=== PATIENT | female | born 2005 | race African-American/Black ===

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

== ENCOUNTER 2024-10-09 15:55 | Emergency (ER) | payer OTHER, BC, SELFPAY ==
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
[2024-10-09 16:02] VITALS: BP 143/80; PULSE 100; RESP 16; TEMP 37; O2SAT 99
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
[2024-10-09 16:24] LABS: BEDSIDEPREGUCG Negative (Negative)
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
--- OUTSIDE RECORDS SUMMARY | 2024-10-10 14:55 | XMS_ITS | Encounter Summary ---
Author Organization [facility] Address [address] [place] [address] Phone Care Team Providers Care Running Rigger Name Role Phone Haylee Rosado MD Primary Care Provider Encounter Details Date Type Department Care Team (Late st Contact Info) Description 10/09/2023 Telephone [facility] Cardiology [address] [facility] Advanced Medicine [address]th [place] [address] [place] [address] Greg Jolley MD [address] [facility] [address] [place], [place] [id number] Social History Tobacco Use Types Packs/Day Years Used Date Smoking Tobacco: Never Passive Smoke Exposure: Never Smokeless Tobacco: Never Personal Safety Answer Date Recorded Getting School Help Needed Not on file 08/04 Comments Unknown Sex and Gender Information Value Date Recorded Sex Assigned at Not on file 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
--- OUTSIDE RECORDS SUMMARY | 2024-10-10 14:55 | XMS_ITS | Referral Summary ---
Author Organization [facility] Address [address] [place] [address] Care Team Providers Care Assorter Laundry Name Role Phone Haylee Rosado MD Primary Care Provider Encounters Date Type Department Care Team Description 07/16/2024 8:30 AM INDUSTRIAL METHODS CONSULTANT Office Visit [facility] Pediatric Neurology [address] [place] [address] Jina Ivey, MEDARDO Migraine without aura and without status migrainosus, not intractable (Primary Dx); Episodic tension-type headache, not intractable from Last 3 Months Allergies Active Allergy Reactions Criticality Noted Date Comments Polymyxin B Sulf-Trimethoprim Other (See comments) Low 02/22/2022 Reaction burning of the eye Medications triamcinolone-dim ethicone 0.1-5 % kit,ointment and cream Active albuterol HFA (PROVENTIL HFA,VENTOLIN HFA,PROAIR HFA) 90 mcg/actuation inhaler Inhale 2 puffs every 6 (six) hours as needed 08/21/19 12 Active medroxyPROGESTERo ne 150 mg/mL injection 150 MG INTRAMUSCULARLY EVERY 3 MONTHS 10/30/19 23 Active montelukast (SINGULAIR) 5 mg chewable tablet Take 2 tablets (10 mg total) by mouth daily 09/19/19 24 Active ubrogepant (UBRELVY) 100 mg tablet Take 1 tablet (100 mg total) by mouth once as needed for migraine May repeat dose once in 2 hours if no relief. Do not exceed 2 doses in 24 hours. 10 tablet 6 07/16/19 25 026 Active rizatriptan CONTROL ROOM SUPERVISOR (MAXALT-CONTROL ROOM SUPERVISOR) 10 mg disintegrating tablet PLEASE SEE ATTACHED FOR DETAILED DIRECTIONS 9 tablet 3 09/01/19 25 Active Hospital, Clinic, or Other Facility Administered Medication Ordered Dose Route Frequency Start Date End Date Status perflutren protein-a (OPTISON) 3 mL in sodium chloride 0.9% 8 mL syringe 1 - 8 mL IV Once in imaging 09/17/2023 Active Active Problems Problem Noted Date Diagnosed Date Shoulder dislocation, left, initial encounter Migraine without aura and wi thout status migrainosus, not intractable 02/22/2022 Episodic tension-type headache, not intractable 02/22/2022 Piriformis syndrome of left side 09/16/2020 Overview (07/16/2024): Marilynn is a 15 y/o female with history of left piriformis syndrome that has dramatically improved with physical therapy. Mild persistent asthma without complication 10/09 Allergic rhinitis due to pollen 11/04/2015 Eczema 11/04/2015 Chest pain 09/13/2015 Allergic conjunctivitis 02/13/2011 Allergic rhinitis 02/13/2011 Overview (07/16/2024): Skin testing on 02/13/11 positive to dust mite, mold, trees, and grass. Asthma 02/13/2011 Overview (07/16/2024): Mild persistent Social History Tobacco Use Types Packs/Day Years Used Date Smoking Tobacco: Never Passive Smoke Exposure: Never Smokeless Tobacco: Never Tobacco Cessation:Counseling Given: Not Answered Personal Safety Answer Date Recorded Have you ever been in or are you currently in a harmful physical or emotional relationship or is someone making you feel afraid or unsafe? 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 Gender Identity Not on file Sexual Orientation Not on file Last Filed Vital Signs Vital Sign Reading Time Taken Comments Blood Pressure 134/81 07/16/2024 8:26 AM INDUSTRIAL METHODS CONSULTANT Pulse 94 07/16/2024 8:26 AM INDUSTRIAL METHODS CONSULTANT Temperature 37 C (98.6 F) 07/16/2024 8:26 AM INDUSTRIAL METHODS CONSULTANT Respiratory Rate 18 01/03/2023 9:16 AM CDT Oxygen Saturation 99% 07/16/2024 8:26 AM INDUSTRIAL METHODS CONSULTANT Inhaled Oxygen Concentration - - Weight 77.9 kg (171 lb 11.8 oz) 07/16/2024 8:26 AM INDUSTRIAL METHODS CONSULTANT Height 162.6 cm (5' 4 ) 07/16/2024 8:26 AM INDUSTRIAL METHODS CONSULTANT Body Mass Index 29.48 07/16/2024 8:26 AM INDUSTRIAL METHODS CONSULTANT Plan of Treatment Not on file Insurance Serious BusinessEM ACCESS Serious BusinessEM ACCESS ANTHEM ACCESS [address] [place] [id number] Care Teams Assorter Laundry Relationship Specialty Start Date End Date Haylee Rosado MD [address] [place] [address] PCP - General Pediatrics 11/24/21
--- OUTSIDE RECORDS SUMMARY | 2024-10-10 14:55 | XMS_ITS | Clinical Summary ---
Author Organization [facility] Address [address] [place] [address] Care Team Providers Care Electrician Maintenance Name Role Phone Haylee Rosado MD Primary Care Provider Allergies Active Allergy Reactions Criticality Noted Date [...] tablet 6 07/16/19 25 026 Active rizatriptan EARLY CHILDHOOD EDUCATION SPECIALIST (MAXALT-EARLY CHILDHOOD EDUCATION SPECIALIST) 10 mg disintegrating tablet PLEASE SEE ATTACHED [...] grass. Asthma 02/13/2011 Overview (07/16/2024): Mild persistent Encounters Date Type Department Care Team Description 07/16/2024 8:30 AM BOTTOM LINER Office Visit [facility] Pediatric Neurology [address] [place] [address] Jina Ivey, MEDARDO Migraine without aura and without status migrainosus, not intractable (Primary Dx); Episodic tension-type headache, not intractable from Last 3 Months Surgical History Surgery Date Site/Laterality Comments ELBOW SURGERY 2010 TYMPANOSTOMY TUBE PLACEMENT 2007 SHOULDER ARTHROSCOPY 04/09/2024 Left WISDOM TOOTH EXTRACTION 01/09/2024 - 02/08/2024 all 4 Medical History Medical History Date Comments Migraine History of hip disorder Anxiety Family History Medical History Relation Name Comments No Known Problems Brother Migraines Father Migraines Mother No Known Problems Sister Relation Name Status Comments Brother Father Mother Sister Social History Tobacco Use Types Packs/Day Years [...] on file Legal Sex Female 1:15 AM BOTTOM LINER Gender Identity Not on file Sexual Orientation Not on file Obstetrics History Last Filed Vital Signs Vital Sign Reading Time Taken Comments Blood Pressure 134/81 07/16/2024 8:26 AM BOTTOM LINER Pulse 94 07/16/2024 8:26 AM BOTTOM LINER Temperature 37 C (98.6 F) 07/16/2024 8:26 AM BOTTOM LINER Respiratory Rate 18 01/03/2023 9:16 AM CDT Oxygen Saturation 99% 07/16/2024 8:26 AM BOTTOM LINER Inhaled Oxygen Concentration - - Weight 77.9 kg (171 lb 11.8 oz) 07/16/2024 8:26 AM BOTTOM LINER Height 162.6 cm (5' 4 ) 07/16/2024 8:26 AM BOTTOM LINER Body Mass Index 29.48 07/16/2024 8:26 AM BOTTOM LINER Plan of Treatment Health Maintenance Due Date Last Done Comments Depression Screening 2004 Hepatitis C Screening 2004 Pneumococcal vaccine <65 (1 of 1 - PPSV23) 2010 10/08/2007, 01/16/2006, 04/16/2005, Additional history exists Regular Well Visit/Exam 18-64 2022 Meningococcal B Vaccine (2 o f 2 - Bexsero SCDM 2-dose series) 08/15/2023 02/14/2023 Covid-19 Vaccine (5 - 2023-2 5 season) 2024 04/10/2022, 06/23/2021, 11/30/2020, Additional history exists DTaP/Tdap/Td Vaccine (7 - Td or Tdap) 10/18/2024 10/18/2014, 10/07/2009, 10/08/2007, Additional history exists Hepatitis B Screening Completed 04/16/2005 , 02/13/2005, 2004, Additional history exists Varicella Vaccines Completed 10/07/2009, 0 10/27/2008, 10/08/2008, Additional history exists HPV Vaccines Completed 11/27/2018, 11/26/2017 Meningococcal Vaccine Completed 12/07/2020, 016 Influenza Vaccine Completed 02/17/2024, , 03/10/2021, Additional history exists Insurance [employer] ACCESS [employer] ACCESS ANTHEM ACCESS [address] [place] [id number] Care Teams Electrician Maintenance Relationship Specialty Start Date End Date Haylee Rosado MD [address] [place] [address] PCP - General Pediatrics 11/24/21
--- OUTSIDE RECORDS SUMMARY | 2024-10-10 14:55 | XMS_ITS | Clinical Summary ---
Author Organization [facility] Address [address] [address] Care Team Providers Care Military Source Operations Specialist Name Role Phone Diana Canada MD Unavailable Haylee Rosado MD Primary Care Provider [phone] Source Comments [facility],non-owned Affiliates and Associated Physician Practices is amultiple site organization consisting of ambulatory clinics and hospital sitesin [place], [place], [place] and [place]. This disclosure is being madepursuant to the Care Everywhere program and may not contain all information available regarding this patient. Last updated 18.[facility] Allergies Active Allergy Reactions Criticality Noted Date Comments Polymyxin B-Trimethoprim Other Low 02/22/2022 Reaction burning of the eye Medications * Be aware that medications may not be up to date on this document. Alwaysverify current medications with the patient. AeroChamber Plus (AEROCHAMBER) Use as directed. 1 Device 1 02/14/20 11 Active albuterol HFA (PROVENTIL;JOSÉ MIGUEL TOLIN;PROAIR) 108 (90 BASE) MCG/ACT inhalerIndicat ions:Asthma Inhale 2 Puffs by mouth every 6 hours as needed (per the action plan). 2 Inhaler 6 08/21/19 12 Active fluticasone propionate (FLONASE) 50 MCG/ACT nasal spray Sweet [place] 1 [place] into each nostril once daily. 1 Bottle 6 08/21/19 12 Active olopatadine (PATANOL) 0.1 % ophthalmic solution 1 (one) drop 2 times daily Active triamcinolone acetonide (KENALOG) 0.1 % ointment APPLY OINTMENT TOPICALLY TWICE A DAY 08/04/19 21 Active medroxyPROGEST ERone (Depo-Provera) 150 MG/ML prefilled syringe INJECT 150 MG INTRAMUSCULARLY EVERY 3 MONTHS Active propranolol (Inderal) 20 MG/5ML oral solution TAKE 7.5 ML (30 MG TOTAL) BY MOUTH 2 (TWO) TIMES A DAY 03/04/20 24 Active ubrogepant (Ubrelvy) 100 MG tablet Take 1 (one) tablet by mouth 11/14/19 24 025 Active montelukast (Singulair) 5 MG chew tablet Take 2 (two) tablets by mouth once daily 09/19/19 24 Active albuterol (Proventil;José Miguel tolin) (2.5 MG/3ML) 0.083% nebulizer solution Inhale 2.5 (two and one-half) mg by mouth every 6 hours as needed Active methylPREDNISo lone (Medrol Dosepak) 4 MG tablet Take by mouth as directed Take as directed by mouth per package instructions. 21 tablet 04/09/20 24 Active meloxicam (Mobic) 15 MG tablet Take 1 (one) tablet by mouth once daily 30 tablet 04/09/20 24 Active docusate sodium (Colace) 100 MG capsule Take 1 (one) capsule by mouth once daily 14 capsule 04/09/20 24 Active gabapentin (Neurontin) 300 MG capsule Take 1 (one) capsule by mouth 3 times daily 21 capsule 04/09/20 24 Active oxyCODONE-acet aminophen (Percocet) 5-325 MG tabletIndicati ons:Postoperat ruddy pain of extremity Take 1 (one) tablet to 2 (two) tablets by mouth every 6 hours as needed for Pain 20 tablet 04/14/20 24 Active acetaminophen (Tylenol) 160 MG/5ML solution Take by mouth every 4 hours as needed for Fever or Pain Active Active Problems Problem Noted Date Diagnosed Date Shoulder dislocation, left, initial encounter Episodic tension-type headache, not intractable 02/22/2022 Migraine without aura and wi thout status migrainosus, not intractable 02/22/2022 Piriformis syndrome of left side 09/16/2020 Overview (01/02/2021): Marilynn is a 15 y/o female with history of left piriformis syndrome that has dramatically improved with physical therapy. Assessment & Plan (01/02/2021 10:38 PM CDT): PLAN: 1. Questions solicited and answered. 2. Medications Prescribed: none 3. Activity Restrictions: none 4. Weightbearing status: No Restrictions 5. Follow up: as needed Assessment & Plan (09/16/2020 12:53 PM CDT): PLAN: 1. Questions solicited and answered. 2. I discussed the following treatment options: Physical Therapy discussed and ordered 3. Exercise options discussed and encouraged. 4. Medications Prescribed: OTC analgesics 5. Activity Restrictions: none 6. Weightbearing status: No Restrictions 7. Follow up: in 3 month(s) without X-rays Allergic rhinitis due to pollen 11/04/2015 Mild persistent asthma without complication 10/09 Chest pain 09/13/2015 Asthma 02/13/2011 Overview (02/13/2011): Mild persistent Allergic rhinitis 02/13/2011 Overview (02/13/2011): Skin testing on 02/13/11 positive to dust mite, mold, trees, and grass. Allergic conjunctivitis 02/13/2011 Eczema 02/13/2011 Encounters Date Type Department Care Team Description 09/04/2024 1:19 PM CDT - 09/04/2024 3:16 PM CDT Hospital Encounter [facility] Pediatrics - Orthopedics [facility] [place] [address] Cristobal Graham MD Discharge Disposition: Home or Self Care 09/04/2024 Travel from Last 3 Months Immunizations Immunization Administration Dates Next Due DTAP/HEP B/IPV 04/16/2005,02/13/2005,2004 HEP B VACCINE, PED/ADOL 2004 HIB BOOSTER 04/16/2005,02/13/2005,2004 PNEUMOCOCCAL CONJ, PEDS 04/16/2005,02/13/2005, Family History Medical History Relation Name Comments Hypertension Maternal Grandmother Kidney Disease Maternal Grandmother Obesity Maternal Grandmother Relation Name Status Comments Maternal Grandmother Social History Tobacco Use Types Packs/Day Years Used Date Smoking Tobacco: Never Smokeless Tobacco: Never Tobacco Cessation:Counseling Given: Not Answered Alcohol Use Standard Drinks/Week Comments No 0 (1 standard drink = 0.6 oz pur e alcohol) PHQ-2 Answer Date Recorded Patient Health Questionnaire-2 Score 0 03/23/2024 Comments No Sex and Gender Information Value Date Recorded Sex Assigned at Not on file Legal Sex Female 5:44 AM CLEAN ROOM ASSEMBLER Gender Identity Not on file Sexual Orientation Not on file Last Filed Vital Signs Vital Sign Reading Time Taken Comments Blood Pressure 114/47 04/09/2024 2:35 PM CDT Pulse 116 04/09/2024 2:35 PM CDT Temperature 36.1 C (97 F) 04/09/2024 2:25 PM CDT Respiratory Rate 21 04/09/2024 2:35 PM CDT Oxygen Saturation 98% 04/09/2024 2:35 PM CDT Inhaled Oxygen Concentration - - Weight 75.3 kg (166 lb) 04/09/2024 11:04 AM CDT Height 160 cm (5' 3 ) 04/09/2024 11:04 AM CDT Body Mass Index 29.41 04/09/2024 11:04 AM CDT Plan of Treatment Upcoming Encounters Date Type Department Care Team (Late st Contact Info) Description 11/06/2024 1:00 PM CDT Appointment [facility] Pediatrics - Orthopedics [address] [place] [address] Cristobal Graham MD [address] [facility] [place] [address] Health Maintenance Due Date Last Done Comments PNEUMOCOCCAL VACCINE (1 of 1 - PPSV23) 2010 04/16/2005, 02/13/2005, 2004 HIV SCREENING 10/07/2019 HPV VACCINE (1 - 3-dose series) 10/07/2019 CHLAMYDIA/GONORRHEA SCREENING 2020 MENINGOCOCCAL (Group B) VACCINE SHARED DECISION-MAKING (1 of 2 - Standard) 2020 HEPATITIS C SCREENING 10/02/2022 DTAP/TDAP/TD VACCINES (4 - Tdap) 10/07/2023 04/16/2005, 02/13/2005, 2004 COVID-19 VACCINE ( - season) 2024 DEPRESSION SCREENING 06/10/2024 ZOSTER VACCINE (1 of 2) 2054 HEPATITIS B VACCINE Completed 04/16/2005, 02/13/2005, 2004, Additional history exists HIB VACCINE Aged Out 04/16/2005, 11/2004, 2004 No longer eligible based on patient's age to complete this topic INFLUENZA VACCINE Completed 02/17/2024 MENINGOCOCCAL GROUPS A/C/Y/W VACCINE Aged Out No longer eligible based on patient's age to complete this topic Medical Devices Implanted Type Area Television Analyzer Device Identifier Shelf Expiration Date Model / Serial / Lot [place] Sut Gryphon Proknot Bcrl Rapide - Sn/A Implanted:Qty: 2 on 04/09/2024 by Cristobal Graham MD at [facility] Left: Shoulder [employer] 06/09/2026 [id number] / N/A / [id number] Insurance [facility] ANTHEM ANTHEM Care Teams Military Source Operations Specialist Relationship Specialty Start Date End Date Diana Canada MD PCP - Pediatrics 02/28/09 Haylee Rosado MD [address] [address] [place] [address] PCP - General 03/16/10
--- OUTSIDE RECORDS SUMMARY | 2024-10-10 14:55 | XMS_ITS | Clinical Summary ---
Author Organization [facility] Address [address] [place] [address] Care Team Providers Care Stationary Boiler Fireman Name Role Phone None, Provider MD Primary Care Provider Unavaila ble Allergies Active Allergy Reactions Criticality Noted Date Comments Polymyxin B-Trimethoprim Other (see comment) Low 02/22/2022 Reaction burning of the eye Medications ubrogepant (UBRELVY) 100 MG tablet Take 1 tablet (100 mg total) by mouth. 11/14/19 24 025 Active medroxyPROGEST ERone (DEPO-PROVERA) injection INJECT 150 MG INTRAMUSCULARLY EVERY 3 MONTHS 12/23/19 24 Active propranolol (INDERAL) 20 MG/5ML solution TAKE 7.5 ML (30 MG TOTAL) BY MOUTH 2 (TWO) TIMES A DAY Active albuterol sulfate HFA 108 (90 Base) MCG/ACT inhaler USE 2 TO 4 PUFFS BY MOUTH EVERY 4 TO 6 HOURS NEEDED PRETREAT WITH EXERCISE 02/17/20 24 Active Family History Medical History Relation Comments Cancer Maternal Grandfather Cancer Maternal Grandmother Diabetes Mother Stroke Mother Cancer Paternal Aunt Hypertension Paternal Grandfather Hypertension Paternal Grandmother Relation Status Comments Father Maternal Grandfather Maternal Grandmother Mother Paternal Aunt Paternal Grandfather Paternal Grandmother Social History Tobacco Use Types Packs/Day Years Used Date Smoking Tobacco: Never Smokeless Tobacco: Never Tobacco Cessation:Counseling Given: No Comments:na Alcohol Use Standard Drinks/Week Comments Never 0 (1 standard drink = 0.6 oz pur e alcohol) PHQ-2 Answer Date Recorded Patient Health Questionnaire-2 Score 0 02/19/2024 Comments No Sex and Gender Information Value Date Recorded Sex Assigned at Female 02/19/2024 7:59 AM CDT Legal Sex Female 3:56 PM CDT Gender Identity Female 02/19/2024 7:59 AM CDT Sexual Orientation Not on file Last Filed Vital Signs Vital Sign Reading Time Taken Comments Blood Pressure 108/72 03/19/2024 7:43 AM CDT Pulse 89 03/19/2024 7:43 AM CDT Temperature - - Respiratory Rate - - Oxygen Saturation - - Inhaled Oxygen Concentration - - Weight 76.2 kg (168 lb) 03/19/2024 7:43 AM CDT Height 162.6 cm (5' 4 ) 03/19/2024 7:43 AM CDT Body Mass Index 28.84 03/19/2024 7:43 AM CDT Plan of Treatment Health Maintenance Due Date Last Done Comments Annual Physical 10/07/2007 Chlamydia Screening Females ages 16-24 2020 Hepatitis C 2022 COVID-19 Vaccine ( season) 2024 04/10/2022, 06/23/2021, 11/30/2020, Additional history exists PHQ-2 (Physician [place]) 06/10/2024 02/19/2024 DTaP, Tdap and Td Vaccines (7 - Td or Tdap) 10/18/2024 10/18/2014, 10/07/2009, 10/08/2007, Additional history exists Hepatitis B Vaccines Completed 04/16/2005, 02/13/2005, 2004, Additional history exists Pneumococcal Vaccine: Pediatrics (0 to 5 Years) and At-Risk Patients (6 to 49 Years) Aged Out 10/08/2007, 01/16/2006, 04/16/2005, Additional history exists No longer eligible based on patient's age to complete this topic HPV Vaccines Completed 11/27/2018, 11/26/2017 Meningococcal Vaccine Completed 12/07/2020, 016 Meningococcal B Vaccine Completed 02/17/2024, 02/14 RSV Immunizations Under 20 Months Aged Out No longer eligible based on patient's age to complete this topic Insurance [facility] GENERIC - COMMERCIAL Care Teams Stationary Boiler Fireman Relationship Specialty Start Date End Date None, Provider, PCP - General UNKNOWN PHYSICIAN SPECIALTY 02/18/24
--- OUTSIDE RECORDS SUMMARY | 2024-10-10 14:55 | XMS_ITS | Continuity of Care Document ---
Author Organization [facility] Address [address] [place] [address] Phone Care Team Providers Care Corporate Intern Name Role Phone Claudy PT,MPT,ATC, Roly Unavailable Unavai lable Procedures Procedure Date Therapeutic Activities Therapeutic Exercise Neuromuscular Re-Ed Neuromuscular Re-Ed Therapeutic Activities Therapeutic Exercise Neuromuscular Re-Ed Therapeutic Activities Therapeutic Exercise Therapeutic Activities Therapeutic Exercise Neuromuscular Re-Ed PT Evaluation Moderate Complexity Neuromuscular Re-Ed Therapeutic Activities Therapeutic Exercise Advance Directives Directive Yes / No Effective Date File Name No Information Encounters Encounter Description Practice Location Reason(s) For Visit Diagnoses Date Provider Providers Copied on Encounter [facility], [place], [place], [id number], tel:[phone] [place] No Information 1 STEPHANE Mal[place]ado, [place]. [facility], [address], [place], [place], [id number], tel:[phone] [facility] No Information 1 STEPHANE Maldonado, [place]. Referring Provider: Hola Dominique [address] [place] [address] [place], [address]. tel:[phone] [facility] [address], [id number], tel:[phone] [place] No Information 1 Claudy [place]ck[place], [place]. Referring Provider: Hola Dominique [address] [place] [address] [place], [address]. tel:[phone] [facility] [address], [id number], [place] tel:[phone] [place] No Information 1 Claudy Mckinney , [place], [place]. Referring Provider: Hola Dominique [address] [place] [address] [place], [address]. tel:[phone] [facility] [address], [id number], [place] tel:[phone] [place] No Information 1 Claudy [place]. Referring Provider: Hola Dominique [address] [place] [address] [place], [address]. tel:[phone] [facility] [address] [place] [address], [id number], [place] tel:[phone] [place] No Information 1 Claudy [place]. Referring Provider: Hola Dominique [address] [place] [address] [place], [address]. tel:[phone] Family History Family Member Type Diagnosis Age At Onset No Information Payers Payer name Insurance type Covered democrat ID Humble donald(s) [facility] [id number] Social History Type Description Quantity Date Captured Comments Sex Female Smoking Status No Information Chief Complaint And Reason For Visit No Information Reason For Referral Reason For Referral No Information History Of Present Illness Encounter Date Complaint History Of Prese nt Illness No Information Functional Status Date Functional Assessmen t No Information Instructions Date Instruction Additional Infor mation No Information Assessments Type Assessment Date No Information Patient Care Teams Name Effective Dates (start - stop) Status Members No Information
--- OUTSIDE RECORDS SUMMARY | 2024-10-10 14:59 | XMS_ITS | Continuity of Care Document ---
Author Organization [facility] Address [address] [place] [address] Phone Care Team Providers Care Supervisor Laundry Name Role Phone Claudy PT,MPT,ATC, Roly Unavailable Unavai lable Procedures Procedure Date Therapeutic Activities Therapeutic Exercise Neuromuscular Re-Ed Neuromuscular Re-Ed Therapeutic Activities Therapeutic Exercise Therapeutic Exercise Therapeutic Activities Neuromuscular Re-Ed Neuromuscular Re-Ed Therapeutic Activities Therapeutic Exercise PT Evaluation Moderate Complexity Therapeutic Exercise Therapeutic Activities Neuromuscular Re-Ed Advance Directives Directive Yes / No Effective Date File Name No Information Encounters Encounter Description Practice Location Reason(s) For Visit Diagnoses Date Provider Providers Copied on Encounter [email or web address], [place], [place], [id number], tel:[phone] [place] No Information 1 STEPHANE Maldonado, [place]. [facility], [address], [place], [place], [id number], tel:[phone] [facility] No Information 1 STEPHANE Maldonado, [place]. Referring Provider: Hola Dominique [address] [place] [address] [place], [address]. tel:[phone] [facility] [address], [id number], tel:[phone] [place] No Information 1 Claudy [place]ck[place], [place]. Referring Provider: Hola Dominique [address] [place] [address] [place], [address]. tel:[phone] [facility] [address], [id number], [place] tel:[phone] [place] No Information 1 Claudy Mckinney , [place], [place]. Referring Provider: Hola Dominique [address] [place] [address] [place], [address]. tel:[phone] [facility] [address], [id number], [place] tel:[phone] [place] No Information 1 Claudy [place], [place]. Referring Provider: Hola Dominique [address] [place] [address] [place], [address]. tel:[phone] [facility] [address] [place] [address], [id number], [place] tel:[phone] [place] No Information 1 Claudy [place], [place]. Referring Provider: Hola Dominique [address] [place] [address] [place], [address]. tel:[phone] Family History Family Member Type Diagnosis Age At Onset No Information Payers Payer name Insurance type Covered alliance party ID Humble donald(s) [facility] [id number] Social History Type Description Quantity Date Captured [...]
== END 2024-10-09 17:14 | disposition home or self-care (01) ==
LOC: ANHED 17:08
PROVIDERS: Registered Nurse; Emergency Provider Emergency Medicine; PCP Pediatrics
DX: S13.4XXA Sprain of ligaments of cervical spine, initial encounter (principal); S39.012A Strain of muscle, fascia and tendon of lower back, initial encounter; S29.012A Strain of muscle and tendon of back wall of thorax, initial encounter; J45.909 Unspecified asthma, uncomplicated; Z79.899 Other long term (current) drug therapy; V49.50XA Passenger injured in collision with unspecified motor vehicles in traffic accident, initial encounter
CPT/HCPCS: 70450; 72125; 72128; 72131; 81025; 99284